=== PATIENT | female | born 1955 | race Caucasian/White ===

== ENCOUNTER 2017-01-31 16:01 | Emergency (ER) ==
[2017-01-31 16:17] VITALS: BP 137/75
--- NOTE | 2017-01-31 16:41 | PROVIDER DOCUMENTATION ---
HPI-EENT General - General Chief Complaint: Cold Symptoms Stated Complaint: BACK PAIN,SINUS INFECTION Time Seen by Provider: 01/31/17 16:22 Source: patient Allergies/Adverse Reactions: Patient Allergies Allergy/AdvReac Type Severity Reaction Status Date / Time codeine Allergy Unknown Unknown Verified 06/11/15 14:46 Home Medications: Home Medication List Medication Instructions Recorded Confirmed Last Taken Type Naproxen 500 mg PO Q12H PRN PRN #20 tablet 06/11/15 Unknown Rx Azithromycin [Zithromax Z-Noé] 250 mg PO DIRECTED #1 pkg 01/31/17 Unknown Rx - History of Present Illness-EENT General Nature of Presenting Problem: 61 y/o WF c/o sinus pressure and congestion, and right neck pain starting at the base of the skull, radiating to the shoulder and scapula, that sullivan when she moves it a certain way. Denies fevers, chills, stiffness, body aches or fever.Denies headaches, nausea or vomiting. No pre-arrival treatment. Son here with similar symptoms. Review of Systems - Adult - REVIEW OF SYSTEMS - ADULT Constitutional: reports: see HPI, fatique. denies: chills, fever Eyes: reports: no symptoms reported. denies: decreased vision, blurred vision, double vision, eye pain Ears, Nose, Mouth & Throat: reports: see HPI, ear pain, sinus problem, nose pain . denies: throat pain Cardiovascular: reports: no symptoms reported. denies: chest pain, palpitations Respiratory: reports: chronic cough. denies: cough, shortness of breath Gastrointestinal: reports: no symptoms reported. denies: abdominal pain, diarrhea, nausea, vomiting Genitourinary: reports: no symptoms reported. denies: dysuria, discharge, frequency Musculoskeletal: reports: no symptoms reported, muscle aches. denies: bone pain , back pain Integumentary: reports: no symptoms reported. denies: rash Neurological: reports: no symptoms reported. denies: headache/migraines Psychiatric: reports: no symptoms reported Endocrine: reports: no symptoms reported Hematologic/Lymphatic: reports: no symptoms reported Allergic/Immunologic: reports: no symptoms reported All Other Systems: Reviewed and Negative Past History - Adult - PAST MEDICAL HISTORY-ADULT Review of Records: reports: Old Records Reviewed, Nursing Assessment Review, Medications Reviewed Major Childhood Illnesses: reports: denies history Cardiovascular: reports: denies history Respiratory: reports: COPD Gastrointestinal: reports: denies history Genitourinary: reports: denies history Musculoskeletal: reports: denies history Neurological: reports: denies history Psychiatric: reports: denies history Endocrine/Immune: reports: anemia Other Conditions: reports: denies history - PRIOR SURGERIES/PROCEDURES Surgical/Procedure History: reports: reviewed, not pertinent - PRIOR HOSPITALIZATIONS Prior Hospitalizations: reports: for other non-related - IMMUNIZATION STATUS Childhood Immunizations: See Nurse Assessment Flu Vaccine: See Nurse Assessment - FAMILY HISTORY Family History: reviewed, not pertinent - SOCIAL HISTORY Smoking: less than 1 pack/day Provider spent 3-5 mins advising pt. on dangers of tobacco.: Discussed manners to quit use, and f/u contacts for add'l counseling. Substance Use: none/never Alcohol Use Frequency: never Physical Exam- EENT - Physical Exam EENT Initial Vital Signs Reviewed: Yes General Appearance: appears well, alert, no apparent distress Eye Exam: bilateral eye: normal inspection, PERRL, EOMI Ear Exam: bilateral ear: auricle normal, canal normal, TM normal Nasal Exam: normal inspection Throat Exam: normal mouth inspection, pharynx normal Neck: non-tender, full range of motion, supple, normal inspection. negative: lymphadenopathy Respiratory: chest non-tender, lungs clear, normal breath sounds, no pleuratic chest pain, no respiratory distress, no accessory muscle use. negative: respiratory distress, decreased breath sounds, accessory muscle use, crackles, rales, rhonchi, wheezing Cardiovascular: normal peripheral pulses, regular rate, rhythm Extremity: normal range of motion, non-tender, normal gait, normal inspection, other (ttp along the right trapezius) Integumentary: normal color, normal turgor, warm/dry Neurologic: grossly normal, no motor/sensory deficits Psych/Mental Status: normal mood/affect, normal thought content, normal thought process, oriented x 3 Progress - PLAN OF CARE/RESULTS Progress/Plan/Lab Results: Vital Signs Temp Pulse Resp BP Pulse Ox 01/31/17 16:14 98.3 F 69 18 137/75 100 codeine Allergy (Unknown, Verified 06/11/15 14:46) Unknown Naproxen 500 mg PO Q12H PRN PRN #20 tablet 06/11/15 Azithromycin [Zithromax Z-Noé] 250 mg PO DIRECTED #1 pkg 01/31/17 Departure - Departure Time of Disposition Order: 16:39 DIAGNOSIS: Trapezius muscle spasm Acute sinusitis Qualifiers: Sinusitis location: maxillary Recurrence: non-recurrent Qualified Code(s): J01.00 - Acute maxillary sinusitis, unspecified Disposition: HOME 01 Certified Medical Emergency: Emergent Condition: Stable Additional Instructions: Follow up with your primary care physician ED Follow Up Instructions: You have been treated by a care provider in the Emergency Department. These instructions are being provided to you so you can have an understanding of how to care for yourself upon discharge. Upon discharge from the Emergency Department, you are responsible for making arrangements for follow-up care by a physician of your choice. Take all prescribed medications as directed. Return to the Emergency Department immediately for any new or worsening symptoms. You may call the Physician Referral phone number at [phone] to obtain a list of Physicians who are taking new patients. Prescriptions: Azithromycin [Zithromax Z-Noé] 250 mg PO DIRECTED #1 pkg Referrals: Enmanuel Banuelos [Primary Care Provider] - Attestation - Physician/ EMILE Attestation Patient care was provided by Advanced Practice Provider:: Yes Advanced Practice Provider:: Abigail Adams Advanced Practice Provider documentation review:: The Mid-level provider documentation, treatment plan and medical decision making was reviewed by the physician who agrees with all treatment and medical decision making by the MLP.
== END 2017-01-31 16:59 | disposition home or self-care (01) ==
LOC: ED 16:01
DX: J01.00 Acute maxillary sinusitis, unspecified (principal); M62.830 Muscle spasm of back; R09.81 Nasal congestion; M54.2 Cervicalgia; R53.83 Other fatigue; H92.09 Otalgia, unspecified ear; J34.89 Other specified disorders of nose and nasal sinuses; R05 Cough; J44.9 Chronic obstructive pulmonary disease, unspecified; F17.210 Nicotine dependence, cigarettes, uncomplicated; Z71.6 Tobacco abuse counseling
CPT/HCPCS: 99281